=== PATIENT | male | born 1950 | race Caucasian/White ===

== ENCOUNTER 2018-12-12 12:11 | Emergency (ER) | payer OTHER, SELFPAY ==
--- NOTE | 2018-12-12 12:22 | EDPHYS ---
Physician Documentation [facility] Name: Edwardo Naidu Age: 68 yrs Sex: Male : 1950 Arrival Date: 12/12/2018 Time: 12:13 Bed 4 Private MD: ED Physician Keo Barnett HPI: 12/12 12:15 This 68 yrs old Male presents to ER via Unassigned with complaints of weak, madi low bloood pressure, advanced pancreatic cancer. 12:15 The patient has shortness of breath at rest. Associated signs and symptoms: Pertinent madi positives: weal, anorexia. Severity of symptoms: At their worst the symptoms were severe in the emergency department the symptoms are unchanged. Historical: - Allergies: 12:40 Unable to obtain; aj1 - Home Meds: 12:40 Unable to obtain [Active]; aj1 - PMHx: 12:40 lung cancer; pancreatic cancer; aj1 - Immunization history:: Adult Immunizations unknown. - Social history:: Smoking status: unknown. - Family history:: not pertinent. - Ebola Screening: : No symptoms or risks identified at this time. ROS: 12:15 Unable to obtain ROS due to comatose state. madi Exam: 12:17 Constitutional: The patient appears in obvious distress, severely distressed. madi 12:17 Chest/axilla: Inspection: no acute changes, Palpation: no acute changes, Axilla: no acute changes, Lymph nodes: lymphadenopathy is not appreciated. 12:17 Cardiovascular: Rate: actual rate is 0 bpm, Rhythm: irregular, Pulses: not palpable, Heart sounds: none, Edema: is not appreciated, JVD: is noted bilaterally, to the angle of the jaw. 12:17 Respiratory: Respiratory rate: zero Vital Signs: 12:15 BP 0 / 0; Pulse 0; Resp 0; Weight 40.82 kg; Height 5 ft. 11 in. (180.34 cm); aj1 12:15 Body Mass Index 12.55 (40.82 kg, 180.34 cm) aj1 MDM: 12:15 Patient medically screened. madi 12:18 Data reviewed: vital signs, nurses notes. madi Administered Medications: No medications were administered Disposition: Patient pronounced on 12/12/18 12:15 by Keo Barnett. Impression: Respiratory arrest, Do not resuscitate. - Released to Home. Signatures: Zoila Caputo RN RN aj1 Keo Barnett MD MD cha Corrections: (The following items were deleted from the chart) 17:06 12:19 12/12/2018 12:19 Patient pronounced on 12/12/2018 at 12:15 by Keo Barnett. aj1 Impression: Respiratory arrest; Do not resuscitate. Released to Home. madi
--- NOTE | 2018-12-12 12:22 | ER ---
Nurse's Notes [facility] Name: Edwardo Naidu Age: 68 yrs Sex: Male : 1950 Arrival Date: 12/12/2018 Time: 12:13 Bed 4 Private MD: Diagnosis: Respiratory arrest;Do not resuscitate Presentation: 12/12 12:13 Presenting complaint: EMS states: Patient has a history of pancreatic cancer and lung aj1 cancer, he has not been doing well and they recently stopped his chemo treatments. Patient fell approximately 1 hour ago, so his family called EMS. Patient initially refused transport, but his BP was 70/50 and his heart rate was in the 150's. Once they had convinced the patient to be transported and moved him to the stretcher, his heart rate had dropped to 55. Patient became unresponsive and went into respiratory arrest en route. Patient's family told EMS that patient does not want CPR or intubation, so they began bagging the patient. IO access was started to the left leg and NS bolus was initiated by EMS. Patient has no respiratory effort upon arrival to ER. 12:13 Transition of care: patient was not received from another setting of care. Onset of aj1 symptoms was December 12, 2018. Risk Assessment: Do you want to hurt yourself or someone else? Unable to obtain. Initial Sepsis Screen: Does the patient meet any 2 criteria? No. Patient's initial sepsis screen is negative. Does the patient have a suspected source of infection? No. Patient's initial sepsis screen is negative. Care prior to arrival: Assisted ventilation, by bag mask ventilation. 12:13 Method Of Arrival: EMS: [facility] aj 12:13 Acuity: [facility] 1 aj1 Triage Assessment: 12:13 General: Appears emaciated, Behavior is unresponsive. Pain: Unable to use pain scale. aj1 Patient is unresponsive. Historical: - Allergies: 12:40 Unable to obtain; aj1 - Home Meds: 12:40 Unable to obtain [Active]; aj1 - PMHx: 12:40 lung cancer; pancreatic cancer; aj1 - Immunization history:: Adult Immunizations unknown. - Social history:: Smoking status: unknown. - Family history:: not pertinent. - Ebola Screening: : No symptoms or risks identified at this time. Assessment: 12:13 Reassessment: Patient's heart rate is in the 30's upon being moved to [place] [id number] where it remains for 2 minutes before patient goes into asystole. Patient's family is at bedside, states that patient did not want CPR or intubation. Dr. Barnett at bedside. 12:15 General: Behavior is unresponsive. Pain: Unable to use pain scale. Patient is [facility] unresponsive. Neuro: Level of Consciousness is unresponsive, Pupils are fixed, dilated. Cardiovascular: Heart tones absent Rhythm is asystole. Respiratory: Respiratory effort is absent. Vital Signs: 12:15 BP 0 / 0; Pulse 0; Resp 0; Weight 40.82 kg; Height 5 ft. 11 in. (180.34 cm); aj1 12:15 Body Mass Index 12.55 (40.82 kg, 180.34 cm) [facility] ED Course: 12:13 Patient arrived in ED. bd 12:13 Arm band placed on. aj1 12:15 Keo Barnett MD is Attending Physician. madi 12:15 No provider procedures requiring assistance completed. aj1 12:16 notified on license of [facility] to have the biochemistry technician personal loan specialist, call the er. bd 12:18 Zoila Caputo, RN is Primary Nurse. aj1 12:18 Keo Barnett MD is Pronouncing Provider. madi 12:40 Triage completed. aj Administered Medications: No medications were administered Outcome: 17:06 Patient : Time of 12:15 Pronounced by Keo Barnett MD Body to [facility] home. 17:06 Patient left the ED. [facility] Signatures: Tonya Balderas Angela, RN RN [facility] Keo Barnett MD MD [facility] Corrections: (The following items were deleted from the chart) 12:50 12:15 Reassessment: Patient's heart rate is in the 30's upon being moved to ER [address], where it remains for 2 minutes before patient goes into asystole. Patient's family is at bedside, states that patient did not want CPR or intubation. Dr. Barnett at bedside. [facility]
== END 2018-12-12 17:06 | disposition expired ==
LOC: ER 12:11
DX: R09.2 Respiratory arrest (principal); Z85.07 Personal history of malignant neoplasm of pancreas; Z85.118 Personal history of other malignant neoplasm of bronchus and lung
CPT/HCPCS: 99285